=== PATIENT | female | born 1940 ===

== ENCOUNTER 2019-06-15 19:24 | Outpatient (REF) | payer BC, MEDICARE, SELFPAY ==
[2019-06-15 19:10] LABS: HCT 44.2 % (36.0-46.0); HGB 14.4 g/dL (12.0-15.5); Mean Corp. HGB Concentration 32.6 g/dL (32.0-36.0); Mean Corpuscular Hemoglobin 31.6 pg (27.0-33.0); Mean Corpuscular Volume 96.9 fL (80-95); Mean Platelet Volume 10.5 fL (8.0-11.0); Platelet Count 228 x1000/uL (130-400); RBC 4.56 m/cumm (4.00-5.20); RBC Distribution Width 13.9 % (11.7-14.6); White Blood Cell Count 6.74 k/cumm (4.4-10.8)
[2019-06-15 19:15] LABS: Anion Gap 9.4 mmol/L (3-11); BUN 34 mg/dL (7-18); CO2 28.6 mmol/L (21.0-32.0); CREATININE 1.43 mg/dL (0.55-1.02); Chloride 106 mmol/L (98-107); Estimated GFR 35.49 (mL/min/1.73m2); Glucose 101 mg/dL (70-100); Potassium 4.9 mmol/L (3.5-5.1); Sodium 144 mmol/L (136-145)
== END 2019-06-15 19:44 ==
LOC: NCHCN 19:24
PROVIDERS: PCP Internal Medicine; Visit Provider Internal Medicine
DX: G31.84 Mild cognitive impairment of uncertain or unknown etiology (principal); I10 Essential (primary) hypertension; I48.91 Unspecified atrial fibrillation; F17.200 Nicotine dependence, unspecified, uncomplicated
CPT/HCPCS: 80048; 85027